=== PATIENT | female | born 1970 | race Caucasian/White ===

== ENCOUNTER 2018-05-05 16:29 | Emergency (ER) | payer MEDICAID, OTHER ==
[~2018-05-05] VITALS: Ht 165.1 cm; Wt 68.2 kg
[~2018-05-05 16:29] MED LIST: FOLI1TAB15 PO; PREN-169 BC
[2018-05-05] MEDS ORDERED: statin PO (16:51)
[2018-05-05] MEDS ORDERED: KETOROLAC TROMETHAMINE 30 MG/ML VIAL IM ONE (18:30)
[2018-05-05 18:59] VITALS: BP 136/84
== END 2018-05-05 19:07 | disposition home or self-care (01) ==
LOC: EMS 16:30
DX: J40 Bronchitis, not specified as acute or chronic (principal); E78.00 Pure hypercholesterolemia, unspecified
CPT/HCPCS: 71045; 96372; 99283; J1885

== ENCOUNTER 2019-01-06 19:37 | Emergency (ER) | payer OTHER ==
[~2019-01-06] VITALS: Ht 152.4 cm; Wt 54.5 kg
[~2019-01-06 19:37] MED LIST changes: -PREN-169 BC; +statin PO
[2019-01-06] MEDS ORDERED: LIDOCAINE/PF 1% 2 ML VIAL IM ONE (21:00)
[2019-01-06] MEDS ORDERED: SULFAMETHOX/TRIMETH DS 800-160 MG/TABLET PO ONE (21:00)
[2019-01-06] MEDS ORDERED: CefTRIAXone SODIUM 1 GM/VIAL IM ONE (21:00)
[2019-01-06 21:35] VITALS: BP 120/73
== END 2019-01-06 21:59 | disposition home or self-care (01) ==
LOC: EMS 19:37
DX: L03.111 Cellulitis of right axilla (principal); E78.00 Pure hypercholesterolemia, unspecified; Z79.899 Other long term (current) drug therapy
CPT/HCPCS: 96372; 99283; J0696; J3490